=== PATIENT | female | born 1975 | race Hispanic/Latino ===

== ENCOUNTER 2017-02-13 00:18 | Emergency (ER) | payer OTHER ==
[~2017-02-13] VITALS: Ht 157.5 cm; Wt 79.6 kg
[~2017-02-13 00:18] MED LIST: ATARAX,VISTARIL25 MG PO; NOHOMEMEDS; PEPCID20 MG PO; PREDNISONE20 MG PO; ZANTAC150 MG PO
[2017-02-13] MEDS ORDERED: NAPROSYN500 MG PO (02:08)
[2017-02-13] MEDS ORDERED: FLEXERIL10 MG PO (02:08)
[2017-02-13 02:29] VITALS: BP 111/67
== END 2017-02-13 02:30 | disposition home or self-care (01) ==
LOC: EME 00:18
DX: S46.912A Strain of unspecified muscle, fascia and tendon at shoulder and upper arm level, left arm, initial encounter (principal); X50.9XXA Other and unspecified overexertion or strenuous movements or postures, initial encounter; Y92.63 Factory as the place of occurrence of the external cause; Y99.0 Civilian activity done for income or pay
CPT/HCPCS: 73030; 99281; 99284

== ENCOUNTER 2017-12-04 21:33 | Emergency (ER) | payer OTHER ==
[~2017-12-04] VITALS: Ht 157.5 cm; Wt 81.5 kg
[~2017-12-04 21:33] MED LIST changes: +FLEXERIL10 MG PO; +NAPROSYN500 MG PO
[2017-12-04] MEDS ORDERED: MOTRIN800 MG PO (22:35)
[2017-12-04 22:44] VITALS: BP 107/51
== END 2017-12-04 22:44 | disposition home or self-care (01) ==
LOC: EME 21:33 → EXP 21:33
DX: S63.501A Unspecified sprain of right wrist, initial encounter (principal); X50.9XXA Other and unspecified overexertion or strenuous movements or postures, initial encounter; Y93.E9 Activity, other interior property and clothing maintenance; Y92.009 Unspecified place in unspecified non-institutional (private) residence as the place of occurrence of the external cause; Y99.0 Civilian activity done for income or pay; M32.9 Systemic lupus erythematosus, unspecified
CPT/HCPCS: 73110; 99281; 99283